=== PATIENT | female | born 1955 | race African-American/Black ===

== ENCOUNTER 2021-07-17 09:45 | Emergency (ER) | payer BC, OTHER ==
[2021-07-17 09:51] VITALS: BP 163/82; PULSE 61; TEMP 98.2; BMI 29.7
[2021-07-17] MEDS ORDERED: METHOCARBAMOL 500 MG TABLET PO ONE (10:42)
[2021-07-17] MEDS ORDERED: ACETAMINOPHEN 500 MG TABLET (FP) PO ONE (10:43)
[2021-07-17] MEDS ORDERED: ACETAMINOPHEN 325 MG TABLET (FP) ONE (11:12)
[2021-07-17] MEDS ORDERED: METHOCARBAMOL 500 MG TABLET ONE ×2 (11:13→11:14)
[2021-07-17] MEDS ORDERED: ACETAMINOPHEN 500 MG TABLET (FP) ONE (11:14)
[2021-07-17 12:44] LABS: HEMATOCRIT 37.5 % (32.4-45.2); HEMOGLOBIN 12.2 GM/dL (10.7-15.3); LYMPH % 47.6 % (8-40); MCH 25.1 pg (25.7-33.7); MCHC 32.4 g/dl (32.0-36.0); MEAN CELL VOLUME 77.4 fl (80-96); MEAN PLT VOLUME 10.5 fl (7.5-11.1); MONO % 7.3 % (3.8-10.2); NEUT % 43.8 % (42.8-82.8); PLATELET COUNT 140 10^3/uL (134-434); RBC 4.84 M/mm3 (3.60-5.2); WHITE BLOOD COUNT 3.5 K/mm3 (4.0-10.0)
[2021-07-17 12:45] LABS: BASO % 0.4 % (0-2.0); EOS % 0.9 % (0-4.5)
[2021-07-17 13:05] LABS: CALCIUM 9.5 mg/dL (8.5-10.1)
[2021-07-17 13:06] LABS: ALBUMIN 3.6 g/dl (3.4-5.0); BLOOD UREA NITROGEN 13.3 mg/dL (7-18)
[2021-07-17 13:09] LABS: CREATININE 0.7 mg/dL (0.55-1.3)
[2021-07-17 13:11] LABS: BILIRUBIN,TOTAL 0.2 mg/dL (0.2-1)
[2021-07-17 13:30] LABS: INR 1.02 (0.83-1.09); PROTHROMBIN TIME (PATIENT) 11.9 SEC (9.7-13.0)
== END 2021-07-17 14:33 | disposition home or self-care (01) ==
LOC: JER 09:45
DX: G44.209 Tension-type headache, unspecified, not intractable (principal)
CPT/HCPCS: 36415; 70450-TC; 80053; 85025; 85610; 99284-25

== ENCOUNTER 2021-12-05 20:51 | Emergency (ER) | payer BC ==
[2021-12-05 21:00] VITALS: BP 169/82; PULSE 61; TEMP 98.6; BMI 28.1
[2021-12-05] MEDS ORDERED: LIDOCAINE VISCOUS 2% ORAL/TOP 15 ML UNIT-DOSE CUP MM ONE (22:10)
[2021-12-05] MEDS ORDERED: MAG HYDROX/AL HYDROX/SIMETH 30 ML UNIT-DOSE CUP PO ONE (22:10)
[2021-12-05] MEDS ORDERED: FAMOTIDINE 10 MG TABLET PO ONE (22:10)
[2021-12-05] MEDS ORDERED: ACETAMINOPHEN 500 MG TABLET (FP) PO ONE (22:10)
[2021-12-05] MEDS ORDERED: FAMOTIDINE 20 MG TABLET ONE (22:16)
[2021-12-05] MEDS ORDERED: MAG HYDROX/AL HYDROX/SIMETH 30 ML UNIT-DOSE CUP ONE (22:17)
[2021-12-05] MEDS ORDERED: ACETAMINOPHEN 325 MG TABLET (FP) ONE (22:17)
[2021-12-05] MEDS ORDERED: LIDOCAINE VISCOUS 2% ORAL/TOP 15 ML UNIT-DOSE CUP ONE (22:17)
== END 2021-12-05 23:13 | disposition home or self-care (01) ==
LOC: JER 20:51
DX: R10.13 Epigastric pain (principal)
CPT/HCPCS: 99283-25

== ENCOUNTER 2022-07-02 23:21 | Emergency (ER) | payer BC, OTHER ==
[2022-07-02 23:29] VITALS: BP 153/85; PULSE 59; RESP 18; TEMP 98.6; BMI 27.3
[2022-07-03] MEDS ORDERED: NITROGLYCERIN SUBLINGUAL 1/150 0.4 MG TAB SL ONE (00:06)
[2022-07-03 00:22] LABS: BASO % 0.4 % (0-2.0); LYMPH % 48.1 % (8-40); MCH 24.2 pg (25.7-33.7); MCHC 31.5 g/dl (32.0-36.0); MEAN PLT VOLUME 8.9 fl (7.5-11.1); MONO % 8.3 % (3.8-10.2); NEUT % 42.2 % (42.8-82.8); PLATELET COUNT 210 10^3/uL (134-434); RBC 4.94 M/mm3 (3.60-5.2); RDW 15.6 % (11.6-15.6); WHITE BLOOD COUNT 5.1 K/mm3 (4.0-10.0)
[2022-07-03 00:44] LABS: BLOOD UREA NITROGEN 11.5 mg/dL (7-18); CALCIUM 9.2 mg/dL (8.5-10.1); MAGNESIUM 2.1 mg/dL (1.8-2.4)
[2022-07-03 00:45] LABS: ALBUMIN 3.6 g/dl (3.4-5.0)
[2022-07-03 00:49] LABS: BILIRUBIN,TOTAL 0.3 mg/dL (0.2-1); TOT PROT 7.8 g/dl (6.4-8.2)
[2022-07-03] MEDS ORDERED: NITROGLYCERIN SUBLINGUAL 1/150 0.4 MG TAB ONE ×2 (01:04→02:09)
== END 2022-07-03 04:13 | disposition home or self-care (01) ==
LOC: JER 23:21
DX: R07.9 Chest pain, unspecified (principal)
CPT/HCPCS: 36415; 71045-TC-FY; 80053; 83735; 84484; 85025; 93005; 93010; 99285-25; C9803-CS; U0003; U0005

== ENCOUNTER 2022-11-13 11:08 | Emergency (ER) | payer BC, OTHER ==
[2022-11-13 11:37] VITALS: BP 160/79; PULSE 63; RESP 19; TEMP 97.9; BMI 28.1
== END 2022-11-13 12:17 | disposition home or self-care (01) ==
LOC: JER 11:08
DX: I10 Essential (primary) hypertension (principal)
CPT/HCPCS: 99282-25

== ENCOUNTER 2024-02-05 20:33 | Emergency (ER) | payer SELFPAY ==
[2024-02-05 20:45] VITALS: BP 146/64; PULSE 59; RESP 18; TEMP 98.1; BMI 31.3
== END 2024-02-05 22:05 | disposition home or self-care (01) ==
LOC: JERFT 20:33
DX: R05.9 Cough, unspecified (principal); R50.9 Fever, unspecified; B34.9 Viral infection, unspecified
CPT/HCPCS: 71046-TC-FY; 99283-25

== ENCOUNTER 2024-09-25 21:35 | Emergency (ER) | payer SELFPAY ==
[2024-09-25 21:51] VITALS: BP 136/73; PULSE 57; RESP 20; TEMP 98.4; BMI 31.3
[2024-09-25] MEDS ORDERED: IBUPROFEN 600 MG TABLET (FP) PO ONE (23:05)
== END 2024-09-25 23:12 | disposition home or self-care (01) ==
LOC: JERFT 21:35
DX: J10.1 Influenza due to other identified influenza virus with other respiratory manifestations (principal); R05.9 Cough, unspecified; J06.9 Acute upper respiratory infection, unspecified; R09.81 Nasal congestion; Z20.822 Contact with and (suspected) exposure to COVID-19
CPT/HCPCS: 0241U-QW; 99283-25